=== PATIENT | female | born 1970 | race Caucasian/White ===

== ENCOUNTER → 2024-01-05 | Day surgery (SDC) | payer OTHER ==
[~2024-01-05] MED LIST: ACETAMINOPHEN 1000 MG/100 ML IV ONE; BUPIVACAINE HCL 0.5% INJ 30 ML VIAL INJ ONE; DEXAMETHASONE SOD PHOS INJ 4 MG/ML SDV ONE; DEXMEDETOMIDINE HCL 200 MCG/2 ML VIAL ONE; FAMOTIDINE 20 MG/2 ML VIAL IV ONE; FENTANYL CITRATE/PF 100MCG/2 ML INJ ONE; HYDROXYZIN10 MG/5 ML PO; LIDOCAINE HCL 2% LOCAL INJ 5 ML SDV VIAL INJ ONE; MIDAZOLAM HCL 2 MG/2 ML VIAL ONE; NEOSTIGMINE 1 MG/ML 10ML VIAL ONE; ONDANSETRON HCL 4 MG ORAL DISINTEGRATING TAB ONE; ONDANSETRON HCL INJ 2MG/ML 2ML 2 MG/ML VIAL ONE; PROPOFOL IV EMULSION 10 MG/ML 20 ML VIAL ONE; SEVOFLURANE INHAL SOLN 250 ML PEN BTL ONE; WELLBUTRIN SR150 MG PO; ZOLOFT50 MG PO
[2024-01-05] MEDS: CEFAZOLIN SODIUM 2 GM ONE (10:28)
[2024-01-05] MEDS: LACTATED RINGER'S 1,000 ML ONE (10:28)
[2024-01-05 13:53] VITALS: TEMP 98.6
[2024-01-05] MEDS: FENTANYL CITRATE/PF 100MCG/2 ML INJ ONE (14:06)
[2024-01-05] MEDS: HYDROCODONE/APAP 7.5MG-325MG 1 EA TAB ONE (14:06)
[2024-01-05] MEDS: ONDANSETRON HCL INJ 2MG/ML 2ML 2 MG/ML VIAL IV ONE (14:42)
[2024-01-05 14:52] VITALS: BP 130/68; PULSE 67; RESP 18; O2SAT 97
== END | disposition home or self-care (01) ==
LOC: OR 10:08
PROVIDERS: ATTEND Podiatrist Foot & Ankle Surgery
DX: M20.11 Hallux valgus (acquired), right foot (principal); M21.6X1 Other acquired deformities of right foot; M20.41 Other hammer toe(s) (acquired), right foot; G47.33 Obstructive sleep apnea (adult) (pediatric); E66.9 Obesity, unspecified; F41.9 Anxiety disorder, unspecified; F32.A Depression, unspecified; Z88.6 Allergy status to analgesic agent; Z01.810 Encounter for preprocedural cardiovascular examination; Z79.899 Other long term (current) drug therapy
CPT/HCPCS: 93005; C1713; C1762; J1100; J2001; J2250; J2405; J2710; Q0162